=== PATIENT | male | born 1980 | race Two or more races ===

== ENCOUNTER 2020-05-02 03:26 | Emergency (ER) | payer SELFPAY ==
[~2020-05-02] VITALS: Ht 170.2 cm; Wt 63.5 kg
[2020-05-02 03:41] VITALS: BP 149/98
--- NOTE | 2020-05-02 03:41 | NUR ---
ED Nurse Note: patient brought in by ambulance RA26 from home d/t witnessed seizure by family, patient aao x 3 upon arrival. Patient reports he has not had his seizure medication for 4 days d/t running out. Patient placed on surveillance system monitor, seizure precautions implemented. Padded side rails in place. Patient stable during assessment. No acute distress noted during assessment.
[2020-05-02] MEDS ORDERED: Phenytoin 1,000 MG in NS 275 ML IVPB ONE (03:45)
[2020-05-02] MEDS ORDERED: DILANTIN100 MG ORAL (03:48)
--- NOTE | 2020-05-02 03:49 | Emergency Room Report ---
History of Present Illness General Chief Complaint: Seizure Source: Patient Present Illness HPI This is a 40-year-old male with a history of seizure. He presents with chief complaint of a seizure. He is currently taking Dilantin but out for the last couple days. He had a tonic-clonic seizure activity witnessed by family. He has oral trauma. Denies any nausea vomiting. Denies any incontinence of bowel or urine. Similar symptom in the past. He does not drive because of his seizure. Allergies: Coded Allergies: No Known Allergies (Unverified , 05/02/20) COVID-19 Screening Contact w/high risk pt: No Experienced COVID-19 symptoms?: No COVID-19 Testing performed WOOD CUTTER: No Patient History Past Medical History: see triage record, old chart reviewed, seizures Past Surgical History: none Pertinent Family History: none Social History: Denies: smoking Immunizations: other Reviewed Nursing Documentation: PMH: Agreed; PSxH: Agreed Review of Systems Eye: Denies: eye pain, blurred vision ENT: Denies: ear pain, nose congestion, throat swelling Respiratory: Denies: cough, shortness of breath Cardiovascular: Denies: chest pain, palpitations Gastrointestinal: Denies: abdominal pain, diarrhea, nausea, vomiting Musculoskeletal: Denies: back pain, joint pain Skin: Denies: rash Neurological: Denies: headache, numbness Endocrine: Denies: increased thirst, increased urine Hematologic/Lymphatic: Denies: easy bruising All Other Systems: negative except mentioned in HPI Physical Exam Vital Signs Date Time Temp Pulse Resp B/P (MAP) Pulse Ox O2 Delivery O2 Flow Rate FiO2 05/02/20 03:15 110 18 170/98 (122) 98 Room Air Vitals with tachycardia Sp02 EP Interpretation: reviewed, normal General Appearance: well appearing, no apparent distress, alert Head: normocephalic, atraumatic Eyes: bilateral eye PERRL, bilateral eye EOMI ENT: hearing grossly normal, normal pharynx, other - Lower lip abrasion Neck: full range of motion, supple, no meningismus Respiratory: chest non-tender, lungs clear, normal breath sounds Cardiovascular #1: regular rate, rhythm, no murmur Gastrointestinal: normal bowel sounds, non tender, no mass, no organomegaly, no bruit, non-distended Musculoskeletal: back normal, normal range of motion, gait/station normal Psychiatric: mood/affect normal Medical Decision Making Diagnostic Impression: Primary Impression: Epileptic seizure, generalized ER Course This patient presents with seizure activity secondary to subtherapeutic level. Loaded with Dilantin here. Will discharge home with Dilantin. Last Vital Signs Date Time Temp Pulse Resp B/P (MAP) Pulse Ox O2 Delivery O2 Flow Rate FiO2 05/02/20 03:15 110 18 170/98 (122) 98 Room Air Status: improved Disposition: HOME, SELF-CARE Condition: Stable Scripts Phenytoin Sodium Extended* (DILANTIN*) 100 Mg Capsule 300 MG ORAL BEDTIME, #180 CAP Prov: Ko Coe MD 05/02/20 Patient Instructions: Seizure, Adult Additional Instructions: Take your seizure medication. Follow-up with your doctor in 7 days. Return if worse. Ko Coe MD May 02, 2020 03:49
--- NOTE | 2020-05-02 04:10 | NUR ---
ED Nurse Note: Patient had witnessed general tonic clonic seizure activity lasting 30 seconds. Padded side rails in place, 6L O2 applied. Patient spontaneous return of consciousness, patient able to follow commands but unable to respond to questions.
[2020-05-02] MEDS ORDERED: LORazepam Inj 2mg/ml 1ml ONE (04:11)
[2020-05-02] MEDS ORDERED: LORazepam Inj 2mg/ml 1ml IV ONE (04:15)
--- NOTE | 2020-05-02 04:48 | NUR ---
ED Nurse Note: Patient reassesed, currently drowsy, unable to answer questions but able to follow commands. VSS, heart rate tachycardic.
[2020-05-02 05:34] VITALS: BP 122/80
--- NOTE | 2020-05-02 07:12 | NUR ---
HAND-OFF: Report given to Mary Greco RN.
--- NOTE | 2020-05-02 07:24 | NUR ---
ED Nurse Note: Received hand-off from MIKE Ghotra for continuity of care. Pt on bed, awake and alert on stable condition, breathing even and unlabored; pt on esl instructional assistant, denies any pain nor discomfort as of now. Established another line on LT hand 22G, blood specimen sent, hydration infusing well.
[2020-05-02 07:29] LABS: ANION GAP 9 mmol/L (5-15); BLOOD UREA NITROGEN 8 mg/dL (7-18); CALCIUM 8.9 MG/DL (8.5-10.1); CARBON DIOXIDE 29 MMOL/L (21-32); CHLORIDE 92 MMOL/L (98-107); CREATININE 0.8 MG/DL (0.55-1.30); POTASSIUM 3.2 MMOL/L (3.5-5.1); SODIUM 130 MMOL/L (136-145)
[2020-05-02 07:35] LABS: ALANINE AMINOTRANSFERASE 62 U/L (12-78); ALBUMIN 4.1 G/DL (3.4-5.0); ALKALINE PHOSPHATASE 83 U/L (46-116); ASPARTATE AMINO TRANSFERASE 183 U/L (15-37); CREATINE KINASE 263 U/L (26-308)
--- NOTE | 2020-05-02 07:35 | NUR ---
ED Nurse Note: Pt was taken to CT on stable condition.
[2020-05-02 07:37] LABS: HEMATOCRIT 39.4 % (42.0-52.0); HEMOGLOBIN 13.8 G/DL (14.2-18.0); MEAN CORPUSCULAR VOLUME 96 FL (80-99); PLATELET COUNT 60 K/UL (150-450); RED CELL DISTRIBUTION WIDTH 12.2 % (11.6-14.8); WHITE BLOOD COUNT 5.3 K/UL (4.8-10.8)
--- NOTE | 2020-05-02 07:50 | Diagnostic Imaging Report ---
EXAM: CT Head Without Intravenous Contrast CLINICAL HISTORY: AMS TECHNIQUE: Axial computed tomography images of the head/brain without intravenous contrast. CTDI is 53.4 mGy and DLP is 1018.8 mGy-cm. One or more of the following dose reduction techniques were used: automated exposure control, adjustment of the mA and/or kV according to patient size, use of iterative reconstruction technique. COMPARISON: None. FINDINGS: Brain: No abnormal extra-axial collection. No hemorrhage. Midline shift: No midline shift or mass-effect. Ventricles: There is prominence of the ventricular system, cortical sulci, basilar cisterns, compatible with age-related atrophy. Bones/joints: Calvarium is unremarkable. No acute fracture. Soft tissues: Unremarkable. Sinuses: Moderate to severe chronic ethmoid sinusitis. Mastoid air cells: Mastoid air cells are well pneumatized. IMPRESSION: 1. 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 2. No acute intracranial pathology is detected. 3. If there is concern for etiology such as early acute lacunar infarcts, magnetic resonance imaging of the brain with diffusion-weighted sequences should be performed for follow-up.
[2020-05-02 09:16] VITALS: BP 141/83
--- NOTE | 2020-05-02 10:03 | NUR ---
ED Nurse Note: Offered juice to pt.
[2020-05-02 10:18] VITALS: BP 138/80
--- NOTE | 2020-05-02 10:18 | NUR ---
ER DISCHARGE NOTE: Patient is cleared to be discharged per ERMD, pt is aox4, on room air, with stable vital signs. pt was given dc and prescription instructions, pt was able to verbalize understanding, pt id band and iv site removed without complications. pt is able to ambulate with steady gait. pt took all belongings.
== END 2020-05-02 10:18 | disposition home or self-care (01) ==
LOC: EDBD 03:26 → EMR 04:10
DX: G40.909 Epilepsy, unspecified, not intractable, without status epilepticus (principal); Z79.899 Other long term (current) drug therapy; S00.511A Abrasion of lip, initial encounter; X58.XXXA Exposure to other specified factors, initial encounter; Y92.9 Unspecified place or not applicable
CPT/HCPCS: 36415; 70450; 80053; 80307; 82550; 83735; 85007; 85025; 93005; 96361; 96365; 96367; 96375; 99284; J1165; J7050; J8499